=== PATIENT | female | born 1990 | race Caucasian/White ===

== ENCOUNTER 2017-04-28 06:58 | Inpatient (IN) | payer BC ==
[2017-04-28] MEDS ORDERED: Ondansetron 4 MG/2 ML SDV IVPUSH PRN ×2 (07:40→08:59)
[2017-04-28] MEDS ORDERED: Nalbuphine 20 MG/1 ML Amp IVPUSH PRN (07:40)
[2017-04-28] MEDS ORDERED: Aluminum Hydroxide/Magnesium Hydroxide/Simethicone Susp 30 ML Cup PO PRN (07:40)
[2017-04-28] MEDS ORDERED: Ampicillin 2 GM in Sodium Chloride 0.9% 100 ML IV ONE (07:40)
[2017-04-28] MEDS ORDERED: Oxytocin/Lactated Ringers 10 UNIT/1,000 ML BAG IV SCH (07:45)
[2017-04-28] MEDS: Lactated Ringers 1,000 ML IV SCH ×4 (08:02→20:00)
[2017-04-28] MEDS ORDERED: diphenhydrAMINE 50 MG/ML SDV IVPUSH PRN (08:59)
[2017-04-28] MEDS ORDERED: ePHEDrine 50 MG/ML SDV IVPUSH PRN (08:59)
[2017-04-28] MEDS ORDERED: fentaNYL 100 MCG/2 ML SDV EPIDUR PRN (08:59)
--- NOTE | 2017-04-28 09:10 | PCM.PREANE ---
Preanesthetic Assessment - Anesthesia/Transfusion/Family Hx Anesthesia History: Prior Anesthesia Without Reaction Transfusion History: No Prior Transfusion(s) - Review of Systems General: No Symptoms Pulmonary: No Symptoms Cardiovascular: No Symptoms Gastrointestinal: Other (Heart Burn ) Neurological: No Symptoms Other: Reports: None - Physical Assessment O2 Sat by Pulse Oximetry: 100 Respiratory Rate: 20 Vital Signs: Last Vital Signs Temp 36.3 C 04/28/17 07:40 Pulse 105 H 04/28/17 07:40 Resp 20 04/28/17 07:40 BP 97/72 04/28/17 07:40 Pulse Ox 100 04/28/17 07:40 Height: 1.52 m Weight: 78.608 kg ASA Class: 2 Mental Status: Alert & Oriented x3 Dentition: Reports: Normal Dentition Thyro-Mental Finger Breadths: 3 Mouth Opening Finger Breadths: 3 ROM/Head Extension: Full Lungs: Clear to Auscultation, Normal Respiratory Effort Cardiovascular: Regular Rate, Regular Rhythm - Lab Values: Laboratory Last Values WBC 7.42 K/mm3 (3.98-10.04) 04/28/17 07:55 RBC 4.02 M/mm3 (3.98-5.22) 04/28/17 07:55 Hgb 11.9 gm/L (11.2-15.7) 04/28/17 07:55 Hct 35.7 % (34.1-44.9) 04/28/17 07:55 MCV 88.8 fl (79.4-94.8) 04/28/17 07:55 MCH 29.6 pg (25.6-32.2) 04/28/17 07:55 MCHC 33.3 g/dl (32.2-35.5) 04/28/17 07:55 RDW Std Deviation 43.9 fL (36.4-46.3) 04/28/17 07:55 Plt Count 198 K/mm3 (182-369) 04/28/17 07:55 MPV 10.1 fl (9.4-12.3) 04/28/17 07:55 Neut % (Auto) 70.6 % (34.0-71.1) 04/28/17 07:55 Lymph % (Auto) 21.2 % (19.3-51.7) 04/28/17 07:55 [place] % (Auto) 8.0 % (4.7-12.5) 04/28/17 07:55 Eos % (Auto) 0 (0.7-5.8) L 04/28/17 07:55 Baso % (Auto) 0.1 % (0.1-1.2) 04/28/17 07:55 Neut # (Auto) 5.24 K/mm3 (1.56-6.13) 04/28/17 07:55 Lymph # (Auto) 1.57 K/mm3 (1.18-3.74) 04/28/17 07:55 [place] # (Auto) 0.59 K/mm3 (0.24-0.36) H 04/28/17 07:55 Eos # (Auto) 0.00 K/mm3 (0.04-0.36) L 04/28/17 07:55 Baso # (Auto) 0.01 K/mm3 (0.01-0.08) 04/28/17 07:55 - Allergies Allergies/Adverse Reactions: Allergies Allergy/AdvReac Type Severity Reaction Status Date / Time cephalexin Allergy Hives Verified 04/28/17 07:40 - Acknowledgements Anesthesia Type Planned: Epidural Pt an Appropriate Candidate for the Planned Anesthesia: Yes Alternatives and Risks of Anesthesia Discussed w Pt/Guardian: Yes Pt/Guardian Understands and Agrees with Anesthesia Plan: Yes PreAnesthesia Questionnaire Gastrointestinal History: Reports: GERD - History Comment History Comment: Tums PRN for heartburn - SUBSTANCE USE Smoking Status *Q: Former Smoker Tobacco Use Within Last Twelve Months: No Second Hand Smoke Exposure: No Recreational Drug Use History: No - CURRENT (IN HOUSE) MEDS Current Meds: Current Medications Al Hydroxide/Mg Hydroxide (Mag-Al Plus) 30 ml PO Q8H PRN PRN Reason: Heartburn Ampicillin Sodium 1 gm/ Sodium (Chloride) 100 mls @ 200 mls/hr IV Q4H SHREYAS Lactated Ringer's (Ringers, Lactated) 1,000 mls @ 100 mls/hr IV ASDIRECTED SHREYAS Last Admin: 04/28/17 08:02 Dose: 100 mls/hr Oxytocin/Lactated Ringer's (Pitocin In Lr 10 Units/1,000 Ml) 10 unit in 1,000 mls @ 500 mls/hr IV .CONTINUOUS SHREYAS Nalbuphine HCl (Nubain) 10 mg IVPUSH Q2H PRN PRN Reason: Pain (moderate 4-6) Ondansetron HCl (Zofran) 4 mg IVPUSH Q4H PRN PRN Reason: Nausea/Vomiting Discontinued Medications Ampicillin Sodium 2 gm/ Sodium (Chloride) 100 mls @ 200 mls/hr IV ONETIME ONE Stop: 04/28/17 08:09 Last Admin: 04/28/17 08:03 Dose: 200 mls/hr
[2017-04-28] MEDS: Ampicillin 1 GM in Sodium Chloride 0.9% 100 ML IV SCH ×3 (12:01→19:53)
--- NOTE | 2017-04-28 12:01 | PCM.LDHP ---
L&D History of Present Illness - General Date of Service: 04/28/17 Admit Problem/Dx: Patient Status Order with Admit Dx/Problem 04/28/17 07:40 Patient Status [ADT] Routine Admission Diagnosis/Problem Admission Diagnosis/Problem 04/28/17 11:45 40-0/7 week intrauterine , elective induction of labor Source of Information: Patient History Limitations: Reports: No Limitations - History of Present Illness Introduction:: Rosa M is a 27-year-old 3 para 2001 white female who is admitted at 40 -0/7 weeks gestational age with an TALAT of 04/28/2017 for elective induction of labor for distance from the hospital. Patient is also group B strep positive. The procedure of rupture membranes induction possible Pitocin augmentation is discussed in detail with her. Risks, benefits, alternatives Including natural onset of labor are discussed in detail. She wishes to proceed. [employer] history 3 para 2001. Previous set at 04/28/2017 as per a certain last menstrual period. Starting 07/22/2016 and supported by ultrasounds 3 done on 10/01/2016, 12/08/2016 and 01/12/2017. Patient had menarche at age 9. Cycles every 22-28 days. 9 using any control at conception. Her previous deliveries include the followin. Female born 02/25/2012 at 40 weeks gestational age after 6 hours of labor-6 lbs. 15 oz., name is Reina 2. Female born 08/11/2008 at 40 weeks gestational age after 8 hours of labor6 pounds 14 ounces, name is Brandi. Delivery was complicated by mild shoulder dystocia. Patient had an [place] depression screen test done 11/26/2016 and score was normal. She is group B strep positive, sensitive to clindamycin, T dap vaccination was given 02/18/2017. course was relatively unremarkable. Her first visit was on 10/01/2016. Weight gain was from 153-173 pounds. Fundal height growth was appropriate. No signs remained stable. Laboratory testing in showed blood to be A+. Advised screen is negative. Initial hemoglobin was 13.8 g/dL. Platelets are 286,000. Her Pap smear was negative. Rubella titer showed immunity. RPR is nonreactive. Hepatitis B and HIV assays were negative. Chlamydia and gonorrhea both negative. Second trimester labs showed a hemoglobin that was normal at 12.3 g/ dL and platelets at 235,000. One-hour GTT was 120. Group B strep screen was positive. Group B strep is found to be sensitive to clindamycin and vancomycin. Allergies: cephalexin which causes hives. Patient has no problems with penicillin or clindamycin. Medications: 1. Thrive for life women's oral tablet -1 daily 2. DHA 1 daily Past medical history: 1. Vaginal delivery 2 2. Asthma 3. History of abnormal Pap smear Past surgical history: 1. Oral surgery 2012 2. Cervical cryotherapy 2009 Family history: The patient has a child with possible autism. Mother alive and well. Father is alive and well. Half siblings are healthy. Maternal grandmother is healthy. Maternal grandfather of a heart attack in his early 60s. Paternal grandfather with heart issues. Paternal grandmother with dementia. Social history: Patient is . She works at the [employer]. She is a high school graduate. Her significant other is González Velasco. She does not use any significant amounts of alcohol, drugs or tobacco. Review of systems: In general patient has no concerns. She is alert and oriented 3. Skin: Negative Cardiovascular: No shortness of breath, chest pain or exercise intolerance. Respiratory: No infectious symptoms or dyspnea. Breasts: Changes associated with only. 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 GI: Negative : Changes associated Musculoskeletal: Some minimal edema noted in the lower extremities Neurological: Negative Physical exam: In general patient is a well-developed, well-nourished, pleasant female stated age in no acute distress. She is alert and oriented 3 and appears to be a good historian. On last evaluation in clinic her blood pressure was 110/75. Weight was 173. heart rate was 126. Gen. patient is well-developed, well-nourished, pleasant female stated age in no acute rest. Skin is warm and dry without lesions. HEENT, neck and back within normal limits. Lungs are clear with good breath sounds in all lung haas. Cardiovascular exam shows regular rate and rhythm. Breast exam is deferred. Abdomen is protuberant last fundal height evaluation at 39 cm. Baby in vertex presentation. Cervical evaluation shows 2+ centimeters dilation, 80% effaced, soft, mid position, was 3 station. Artificial rupture membranes undertaken and resulted in clear amniotic fluid in moderate amounts. Extremities and neurological exam are grossly within normal limits. - Related Data Allergies/Adverse Reactions: Allergies Allergy/AdvReac Type Severity Reaction Status Date / Time cephalexin Allergy Hives Verified 04/28/17 07:40 Past Medical History Gastrointestinal History: Reports: GERD - History Comment History Comment: Tums PRN for heartburn Social & Family History - Family History Family Medical History: Noncontributory - Tobacco Use Smoking Status *Q: Former Smoker Used Tobacco, but Quit: Yes Month Tobacco Last Used: 12 Second Hand Smoke Exposure: No - Caffeine Use Caffeine Use: Reports: Other Other Caffeine Use: Thrive - Recreational Drug Use Recreational Drug Use: No H&P Review of Systems - Review of Systems: Review Of Systems: See Below L&D Exam - Exam Exam: See Below - Vital Signs Vital Signs: Last Vital Signs Temp 36.3 C 04/28/17 07:40 Pulse 105 H 04/28/17 07:40 Resp 20 04/28/17 09:10 BP 97/72 04/28/17 07:40 Pulse Ox 100 04/28/17 09:10 Weight: 78.608 kg - Patient Data Lab Results Last 24 hrs: Laboratory Results - last 24 hr 04/28/17 Range/Units 07:55 WBC 7.42 (3.98-10.04) K/mm3 RBC 4.02 (3.98-5.22) M/mm3 Hgb 11.9 (11.2-15.7) gm/L Hct 35.7 (34.1-44.9) % MCV 88.8 (79.4-94.8) fl MCH 29.6 (25.6-32.2) pg MCHC 33.3 (32.2-35.5) g/dl RDW Std Deviation 43.9 (36.4-46.3) fL Plt Count 198 (182-369) K/mm3 MPV 10.1 (9.4-12.3) fl Neut % (Auto) 70.6 (34.0-71.1) % Lymph % (Auto) 21.2 (19.3-51.7) % [place] % (Auto) 8.0 (4.7-12.5) % Eos % (Auto) 0 L (0.7-5.8) Baso % (Auto) 0.1 (0.1-1.2) % Neut # (Auto) 5.24 (1.56-6.13) K/mm3 Lymph # (Auto) 1.57 (1.18-3.74) K/mm3 [place] # (Auto) 0.59 H (0.24-0.36) K/mm3 Eos # (Auto) 0.00 L (0.04-0.36) K/mm3 Baso # (Auto) 0.01 (0.01-0.08) K/mm3 Result Diagrams: 04/28/17 07:55 Problem List Initiated/Reviewed/Updated: Yes Orders Last 24hrs: Active Orders 24 hr Category Date Time Status Patient Status [ADT] Routine ADT 04/28/17 07:40 Active Activity as Tolerated [RC] PFP Care 04/28/17 07:40 Active Communication Order [RC] ASDIRECTED Care 04/28/17 07:40 Active Notify Provider [RC] ASDIRECTED Care 04/28/17 08:59 Active Notify Provider [RC] PFP Care 04/28/17 07:40 Active Notify Provider [RC] PRN Care 04/28/17 07:40 Active Vital Signs [RC] PER UNIT ROUTINE Care 04/28/17 07:40 Active Regular Diet [DIET] Diet 04/28/17 Breakfast Active Alum Hydrox/Mag Hydrox/Simeth [Mag-Al Plus] Med 04/28/17 07:40 Active 30 ml PO Q8H PRN Ampicillin 1 gm Med 04/28/17 12:00 Active Sodium Chloride 0.9% [Normal Saline] 100 ml IV Q4H Bupivacaine/fentaNYL/NS [fentaNYL/Bupivacaine/NS 2 MCG- Med 04/28/17 09:00 Active 0.125% 100 ML] 100 ml EPIDUR ASDIRECTED Lactated Ringers [Ringers, Lactated] 1,000 ml Med 04/28/17 07:45 Active IV ASDIRECTED Nalbuphine [Nubain] Med 04/28/17 07:40 Active 10 mg IVPUSH Q2H PRN Ondansetron [Zofran] Med 04/28/17 08:59 Active 4 mg IVPUSH ONETIME PRN Ondansetron [Zofran] Med 04/28/17 07:40 Active 4 mg IVPUSH Q4H PRN Oxytocin/Lactated Ringers [Pitocin in LR 10 Units/1,000 Med 04/28/17 07:45 Active ML] 10 unit in 1,000 ml IV .CONTINUOUS Oxytocin/Lactated Ringers [Pitocin in LR 10 Units/1,000 Med 04/28/17 10:45 Active ML] 10 unit in 1,000 ml IV TITRATE diphenhydrAMINE [Benadryl] Med 04/28/17 08:59 Active 25 mg IVPUSH Q6H PRN ePHEDrine [ePHEDrine Sulfate] Med 04/28/17 08:59 Active 5 mg IVPUSH ASDIRECTED PRN fentaNYL [Sublimaze] Med 04/28/17 08:59 Active 100 mcg EPIDUR ONETIME PRN Electronic Heart Tones Ext w TOCO [WOMSER] Oth 04/28/17 07:40 Ordered Routine Electronic Heart Tones Internal [WOMSER] Per Unit Oth 04/28/17 07:40 Ordered Routine Peripheral IV Insertion Adult [OM.PC] Routine Oth 04/28/17 07:40 Ordered Resuscitation Status Routine Resus Stat 04/28/17 07:40 Ordered Medication Orders Al Hydroxide/Mg Hydroxide (Mag-Al Plus) 30 ml PO Q8H PRN PRN Reason: Heartburn Diphenhydramine HCl (Benadryl) 25 mg IVPUSH Q6H PRN PRN Reason: Pruritis Ephedrine Sulfate (Ephedrine Sulfate) 5 mg IVPUSH ASDIRECTED PRN PRN Reason: Hypotension Fentanyl (Sublimaze) 100 mcg EPIDUR ONETIME PRN PRN Reason: Pain Fentanyl/Bupivacaine HCl (Fentanyl/Bupivacaine/Ns 2 Mcg-0.125% 100 Ml) 100 ml EPIDUR ASDIRECTED [facility] Ampicillin Sodium 1 gm/ Sodium (Chloride) 100 mls @ 200 mls/hr IV Q4H [facility] Lactated Ringer's (Ringers, Lactated) 1,000 mls @ 100 mls/hr IV ASDIRECTED [facility] Last Admin: 04/28/17 08:02 Dose: 100 mls/hr Oxytocin/Lactated Ringer's (Pitocin In Lr 10 Units/1,000 Ml) 10 unit in 1,000 mls @ 500 mls/hr IV .CONTINUOUS SHREYAS Oxytocin/Lactated Ringer's (Pitocin In Lr 10 Units/1,000 Ml) 10 unit in 1,000 mls @ 12 mls/hr IV TITRATE SHREYAS; 2 MUNITS/MIN PRN Reason: Protocol Nalbuphine HCl (Nubain) 10 mg IVPUSH Q2H PRN PRN Reason: Pain (moderate 4-6) Ondansetron HCl (Zofran) 4 mg IVPUSH Q4H PRN PRN Reason: Nausea/Vomiting Ondansetron HCl (Zofran) 4 mg IVPUSH ONETIME PRN PRN Reason: Nausea/Vomiting Assessment/Plan Comment:: Assessment: 1. 40-0/7 week intrauterine , admitted for elective induction of labor because of increased distance from the hospital and history of group B strep positive status. 2. Patient is allergic to cephalexin but has been given ampicillin 2 which she had no reaction. 3. Patient plans to nurse 4. Patient is interested in epidural. Plan: 1. Anticipate normal spontaneous vaginal delivery 2. Pitocin augmentation as indicated by labor pattern 3. Epidural when necessary for pain control 4. Support nursing decision. 5. CBC.
[2017-04-28] MEDS: Oxytocin/Lactated Ringers 10 UNIT/1,000 ML BAG IV SCH ×2 (12:05→15:55)
[2017-04-28] MEDS: Bupivacaine/fentaNYL/NS 100 ML Bag EPIDUR SCH ×2 (13:30→18:29)
--- NOTE | 2017-04-28 21:27 | PCM.SN ---
- Free Text/Narrative Note: Delivery note: Rosa M is a 27-year-old 3 now para 3003 white female who is admitted on 04/28/2017 at 40-0/7 weeks gestational age for elective induction of labor because of distance from the hospital and group B strep status. Induction was with artificial rupture membranes and eventually with Pitocin. Patient was started on IV fluids and IV ampicillin t0 which she did not have a reaction. She has an allergy history known to include cephalosporins which causes hives. She had no reaction to the ampicillin. The patient progressed slowly and the labor was augmented with Pitocin IV. At approximately 2030 hrs. on 04/28/2017 patient achieved complete dilation. She pushed for short period time but was felt to have a left occiput posterior positioned baby. heart tones were descending down into the 60s and 70s and decision was made to assist with vacuum extraction delivery. This was undertaken after discussion with patient and significant other concerning the risks and benefits of vacuum extraction delivery in this situation. They agreed to proceed. Neck extraction was successful. Baby's head was delivered the nuchal cord was noted moderately tight and was reduced over the baby's body. No shoulder dystocia or other problems were in encountered. The baby delivered in a left occiput anterior position and rotated around from the left occiput posterior position. Time of delivery was 2055 hrs. on 04/28/2017. Baby was male infant, Apgars of 3 and 9, weight 8 lbs. 6 oz. (3790 g). Patient had a first-degree laceration which was repaired with one single [id number] suture of 3-0 Vicryl. Placenta delivered intact with a Valles presentation at 2100 hrs. It appeared normal and complete. It was discarded per patient desire. Pitocin was given via IV after the baby delivered to increase uterine tone and decrease the probability of uterine bleeding. Estimated blood loss was 200 mL. The patient plans to nurse. Condition: Good
[2017-04-28] MEDS ORDERED: Witch Hazel Medicated Pads 100/Jar TOP PRN (21:45)
[2017-04-28] MEDS ORDERED: Acetaminophen 325 MG Tab PO PRN (21:45)
[2017-04-28] MEDS ORDERED: Lanolin 100% Cream 7 GM Tube TOP PRN (21:45)
[2017-04-28] MEDS ORDERED: Docusate Sodium 100 MG Cap PO PRN (21:45)
[2017-04-28] MEDS ORDERED: Benzocaine/Menthol 20%-0.5% Spray 56 GM Canister TOP PRN (21:45)
[2017-04-28] MEDS ORDERED: Bupivacaine 0.25% 10 ML SDV ONE (22:22)
[2017-04-28] MEDS: Ibuprofen 600 MG Tab PO PRN (22:35)
[2017-04-29] MEDS: Ibuprofen 600 MG Tab PO PRN ×5 (04:28→21:15)
--- NOTE | 2017-04-29 08:10 | PCM.SN ---
- Free Text/Narrative Note: Rosa M is now day 1. She is doing well. She is ambulating without concerns, voiding without problems and is attempting to nurse. Her vital signs are stable. She is afebrile. Abdomen is flat, soft, uterus at umbilicus or just below and nontender. It is relatively firm. Extremities show no significant edema. Assessment/plan: day 1. Doing well. Routine cares.
[2017-04-29] MEDS: Prenatal Multivitamin with Calcium/Folic Acid/Iron Tab PO SCH (08:59)
[2017-04-30] MEDS: Ibuprofen 600 MG Tab PO PRN ×2 (05:44→09:58)
--- NOTE | 2017-04-30 06:41 | PCM.DCSUM1 ---
Discharge Summary - Hospital Course Free Text/Narrative:: Rosa M is a 27-year-old 3 now para 3003 white female who is admitted on 04/28/2017 at 40-0/7 weeks gestational age for elective induction of labor because of distance from the hospital and group B strep status. Induction was with artificial rupture membranes and eventually with Pitocin. Patient was started on IV fluids and IV ampicillin t0 which she did not have a reaction. She has an allergy history known to include cephalosporins which causes hives. She had no reaction to the ampicillin. The patient progressed slowly and the labor was augmented with Pitocin IV. At approximately 2030 hrs. on 04/28/2017 patient achieved complete dilation. She pushed for short period time but was felt to have a left occiput posterior positioned baby. heart tones were descending down into the 60s and 70s and decision was made to assist with vacuum extraction delivery. This was undertaken after discussion with patient and significant other concerning the risks and benefits of vacuum extraction delivery in this situation. They agreed to proceed. Vacuum extraction was successful.. Baby's head was delivered the nuchal cord was noted moderately tight and was reduced over the baby's body. No shoulder dystocia or other problems were in encountered. The baby delivered in a left occiput anterior position and rotated around from the left occiput posterior position. Time of delivery was 2055 hrs. on 04/28/2017. Baby was male infant, Apgars of 3 and 9, weight 8 lbs. 6 oz. (3790 g). Patient had a first-degree laceration which was repaired with one single [id number] suture of 3-0 Vicryl. Placenta delivered intact with a Valles presentation at 2100 hrs. It appeared normal and complete. It was discarded per patient desire. Pitocin was given via IV after the baby delivered to increase uterine tone and decrease the probability of uterine bleeding. Estimated blood loss was 200 mL. The patient plans to nurse. patient has done very well. She is nursing with some concerns. follow-up labs within normal notes. Patient is desiring discharge home. - Discharge Data Discharge Date: 04/30/17 Discharge Disposition: Home, Self-Care 01 Condition: Good - Patient Instructions Diet: Regular Diet as Tolerated (nursing diet was increased calcium and calories as recommended) Activity: As Tolerated (No intercourse or tampons until bleeding resolves) Driving: May Drive Today Showering/Bathing: May Shower (Or take a bath) Notify Provider of: Fever, Increased Pain, Swelling and Redness, Nausea and/or Vomiting - Discharge Plan Home Medications: Home Meds Ibuprofen [IJD: Ibuprofen] 600 mg PO Q4H PRN #30 tablet 04/30/17 [Rx] Vit with Ca/FA/Iron [ Plus Iron] 1 each PO DAILY tablet [Rx] Referrals: Basil Hull MD [Primary Care Provider] - [facility] - Discharge Summary/Plan Comment DC Time >30 min.: No Discharge Summary/Plan Comment: Discharge instructions: 1. Discharge home 2. Diet, activity and follow-up discussed with patient. Recommend nursing diet with increased calories and calcium. 3. Precautions given concern increased pain, bleeding, temperature, signs/ symptoms of DVT/PE. 4. Medications per home medication was printed, discussed with and given to the patient. 5. Return to clinic-Dr. Hull[facility] in 2 weeks. Diagnosis: Term -delivered Condition: Good - Patient Data Vitals - Most Recent: Last Vital Signs Temp 36.4 C 04/30/17 05:46 Pulse 67 04/30/17 05:46 Resp 12 04/30/17 05:46 BP 100/72 04/30/17 05:46 Pulse Ox 97 04/30/17 05:46 Weight - Most Recent: 78.608 kg I&O - Last 24 hours: Intake & Output 04/29/17 04/29/17 04/30/17 14:59 22:59 06:59 Intake Total 420 Balance 420 Lab Results - Last 24 hrs: Laboratory Results - last 24 hr 04/29/17 Range/Units 06:30 WBC 12.21 H (3.98-10.04) K/mm3 RBC 3.80 L (3.98-5.22) M/mm3 Hgb 11.3 (11.2-15.7) gm/L Hct 34.2 (34.1-44.9) % MCV 90.0 (79.4-94.8) fl MCH 29.7 (25.6-32.2) pg MCHC 33.0 (32.2-35.5) g/dl RDW Std Deviation 44.8 (36.4-46.3) fL Plt Count 173 L (182-369) K/mm3 MPV 10.2 (9.4-12.3) fl Med Orders - Current: Current Medications Acetaminophen (Tylenol) 650 mg PO Q4H PRN PRN Reason: mild pain or fever Last Admin: 04/29/17 07:41 Dose: 650 mg Benzocaine/Menthol (Dermoplast Pain Relief [place]) 0 gm TOP ASDIRECTED PRN PRN Reason: Perineal Comfort Measure Last Admin: 04/28/17 22:34 Dose: 56 gm Docusate Sodium (Colace) 100 mg PO BID PRN PRN Reason: Constipation Emollient Ointment (Lansinoh Hpa) 0 gm TOP ASDIRECTED PRN PRN Reason: Sore Nipples Ibuprofen (Motrin) 600 mg PO Q4H PRN PRN Reason: Mild pain or fever Last Admin: 04/30/17 05:44 Dose: 600 mg Prenat Multivit/Repairer/Iron/Folic Ac ( Plus Iron) 1 each PO DAILY [facility] Last Admin: 04/29/17 08:59 Dose: 1 each Witch [place] (Tucks) 1 pad TOP ASDIRECTED PRN PRN Reason: Hemorrhoid pain Last Admin: 04/28/17 22:35 Dose: 1 pad Discontinued Medications Al Hydroxide/Mg Hydroxide (Mag-Al Plus) 30 ml PO Q8H PRN PRN Reason: Heartburn Bupivacaine HCl (Sensorcaine-Mpf 0.25%) 20 ml .ROUTE .STK-MED ONE Stop: 04/28/17 22:23 Diphenhydramine HCl (Benadryl) 25 mg IVPUSH Q6H PRN PRN Reason: Pruritis Ephedrine Sulfate (Ephedrine Sulfate) 5 mg IVPUSH ASDIRECTED PRN PRN Reason: Hypotension Fentanyl (Sublimaze) 100 mcg EPIDUR ONETIME PRN PRN Reason: Pain Last Admin: 04/28/17 13:31 Dose: 100 mcg Fentanyl/Bupivacaine HCl (Fentanyl/Bupivacaine/Ns 2 Mcg-0.125% 100 Ml) 100 ml EPIDUR ASDIRECTED SHREYAS Last Admin: 04/28/17 18:29 Dose: 100 ml Ampicillin Sodium 2 gm/ Sodium (Chloride) 100 mls @ 200 mls/hr IV ONETIME ONE Stop: 04/28/17 08:09 Last Admin: 04/28/17 08:03 Dose: 200 mls/hr Ampicillin Sodium 1 gm/ Sodium (Chloride) 100 mls @ 200 mls/hr IV Q4H SHREYAS Last Admin: 04/28/17 19:53 Dose: 200 mls/hr Lactated Ringer's (Ringers, Lactated) 1,000 mls @ 100 mls/hr IV ASDIRECTED SHREYAS Last Admin: 04/28/17 20:00 Dose: 500 mls/hr Oxytocin/Lactated Ringer's (Pitocin In Lr 10 Units/1,000 Ml) 10 unit in 1,000 mls @ 500 mls/hr IV .CONTINUOUS SHREYAS Last Admin: 04/28/17 20:57 Dose: 500 mls/hr Oxytocin/Lactated Ringer's (Pitocin In Lr 10 Units/1,000 Ml) 10 unit in 1,000 mls @ 12 mls/hr IV TITRATE SHREYAS; 2 MUNITS/MIN PRN Reason: Protocol Last Titration: 04/28/17 20:45 Dose: 0 munits/min, 0 mls/hr Nalbuphine HCl (Nubain) 10 mg IVPUSH Q2H PRN PRN Reason: Pain (moderate 4-6) Ondansetron HCl (Zofran) 4 mg IVPUSH Q4H PRN PRN Reason: Nausea/Vomiting Ondansetron HCl (Zofran) 4 mg IVPUSH ONETIME PRN PRN Reason: Nausea/Vomiting *Q Meaningful Use (DIS) - VTE *Q VTE Criteria *Q: - Stroke *Q Stroke Criteria *Q: - AMI *Q AMI Criteria *Q:
[2017-04-30] MEDS: Prenatal Multivitamin with Calcium/Folic Acid/Iron Tab PO SCH (09:24)
== END 2017-04-30 13:36 | disposition home or self-care (01) | DRG 560 ==
LOC: JD.OB 06:58 → EDSTATUS 12:03 → JD.OB 20:55 → OBSVTOIN 20:55
PROVIDERS: ADMIT Obstetrics & Gynecology; ATTEND Obstetrics & Gynecology
PROC: 10E0XZZ Delivery of Products of Conception, External Approach (ICD-10-PCS; principal; 2017-04-28)
PROC: 0HQ9XZZ Repair Perineum Skin, External Approach (ICD-10-PCS; 2017-04-28)
PROC: 10907ZC Drainage of Amniotic Fluid, Therapeutic from Products of Conception, Via Natural or Artificial Opening (ICD-10-PCS; 2017-04-28)
PROC: 3E0P3VZ Introduction of Hormone into Female Reproductive, Percutaneous Approach (ICD-10-PCS; 2017-04-28)
PROC: 00HU33Z Insertion of Infusion Device into Spinal Canal, Percutaneous Approach (ICD-10-PCS; 2017-04-28)
PROC: 3E0R3BZ Introduction of Anesthetic Agent into Spinal Canal, Percutaneous Approach (ICD-10-PCS; 2017-04-28)
DX: O99.824 Streptococcus B carrier state complicating childbirth (principal); Z3A.40 40 weeks gestation of pregnancy; Z37.0 Single live birth; Z88.1 Allergy status to other antibiotic agents; Z87.891 Personal history of nicotine dependence; O70.0 First degree perineal laceration during delivery; O69.81X0 Labor and delivery complicated by cord around neck, without compression, not applicable or unspecified
CPT/HCPCS: 36415; 51702; 59300; 59409; 85025; 85027; A9270-GY; J0290; J2590; J3010; J7030; J7120